=== PATIENT | male | born 1970 | race Caucasian/White ===

== ENCOUNTER → 2016-11-23 | Outpatient (CLI) | payer OTHER ==
[~2016-11-23] MED LIST: BUMEX 1MG TABLET1 MG PO; CEFDINIR300 MG PO; COZAAR100 MG PO; DOSS PO; NORCO 7.5-3251 EACH PO; PERCOCET 5-3251 EACH PO; PHENERGAN 12.12.5 M1 PO; RESTORIL15 MG PO
== END ==
LOC: RAD 09:00
DX: M19.011 Primary osteoarthritis, right shoulder (principal)
CPT/HCPCS: 73040; 73222; A9577; Q9962

== ENCOUNTER → 2016-12-13 | Day surgery (SDC) | payer OTHER ==
[~2016-12-13] VITALS: Ht 172.7 cm; Wt 127.0 kg
[2016-12-13 10:57] LABS: BUN/CREATININE RATIO 21 (0-10)
== END | disposition home or self-care (01) ==
LOC: OR 12-08 10:00
PROVIDERS: Orthopaedic Surgery
PROC: 0LS30ZZ Reposition Right Upper Arm Tendon, Open Approach (ICD-10-PCS; principal; 2016-12-13 13:15)
PROC: 0PB94ZZ Excision of Right Clavicle, Percutaneous Endoscopic Approach (ICD-10-PCS; 2016-12-13 13:15)
PROC: 0RBJ4ZZ Excision of Right Shoulder Joint, Percutaneous Endoscopic Approach (ICD-10-PCS; 2016-12-13 13:15)
DX: M19.011 Primary osteoarthritis, right shoulder (principal); S43.401A Unspecified sprain of right shoulder joint, initial encounter; S46.011A Strain of muscle(s) and tendon(s) of the rotator cuff of right shoulder, initial encounter; M75.21 Bicipital tendinitis, right shoulder; M94.211 Chondromalacia, right shoulder; I10 Essential (primary) hypertension; G47.30 Sleep apnea, unspecified; M19.90 Unspecified osteoarthritis, unspecified site; G43.909 Migraine, unspecified, not intractable, without status migrainosus; G89.29 Other chronic pain; M54.9 Dorsalgia, unspecified; F17.210 Nicotine dependence, cigarettes, uncomplicated; Z79.891 Long term (current) use of opiate analgesic; Z79.899 Other long term (current) drug therapy; Z88.0 Allergy status to penicillin
CPT/HCPCS: 36415; 71010; 73030; 80048; 93005; C1713; J0171; J1100; J2250; J2270; J2405; J2710; J2795; J3010; J7120